=== PATIENT | female | born 1965 | race Caucasian/White ===

== ENCOUNTER 2016-08-08 22:49 | Inpatient (IN) | payer OTHER ==
--- NOTE | ~2016-08-08 | CN ---
Consultation Report [place] [id number] [facility] [place]. [address] NAME: RAUL BARRERA : 67 STATUS : ADM IN [facility]#: [id number] AGE: 51 ADM/REG DATE : 08/09/16 MR#: [id number] REPORT SERV DATE: 08/09/16 DICTATED BY: PRINCE HALL DATE: 08/09/16 REPORT STATUS : Draft TRANSCRIBED BY: MODL DATE: 08/09/16 CONSULTATION DATE OF CONSULTATION: 08/09/2016 ATTENDING PHYSICIAN: Prince Hall MD REASON FOR CONSULTATION: Right hydronephrosis. HISTORY OF PRESENT ILLNESS: Ms. Barrera is a very pleasant 51-year-old female, who is admitted to the hospital with a seizure. As part of the workup an abdominal complete ultrasound was performed. She did have some mild right hydronephrosis with a normal left kidney. No abnormalities were found. The patient does endorse a history of right flank pain. She also endorses a history recurring infections that are "resistant to antibiotics." She has no known history of stone disease or other genitourinary abnormalities. I have been asked to consult regarding the hydronephrosis on the ultrasound. PAST MEDICAL HISTORY: COPD, hyponatremia, hypertension, bronchiectasis, polyarthritis, bipolar, alcoholism, and colon polyps. PAST SURGICAL HISTORY: Right breast lumpectomy and tubal ligation. ALLERGIES: NO KNOWN DRUG ALLERGIES. MEDICATIONS: Reviewed and on the chart. SOCIAL HISTORY: She smokes. She is a current drinker. She lives alone. She does not use illegal drugs. FAMILY HISTORY: Noncontributory. REVIEW OF SYSTEMS: A 12-point review of systems was performed. Pertinent positives are listed in the HPI. PHYSICAL EXAMINATION: VITAL SIGNS: Temperature 98.1, pulse 86, blood pressure 120/59, saturating 95% on room air. GENERAL: She is in no acute distress. She appears her stated age. HEENT: Her head is normocephalic and atraumatic. LUNGS: Breathing is nonlabored. She is not in respiratory distress. CARDIAC: Pulse is regular in rate and rhythm. ABDOMEN: Soft, nontender, and nondistended. She has right CVA tenderness. She does not have left CVA tenderness. NEUROLOGIC: She is alert and oriented x3. Consultation Report [facility] [address] [place]. [address] NAME: RAUL BARRERA : 67 STATUS : ADM IN [facility]#: [id number] AGE: 51 ADM/REG DATE : 08/09/16 MR#: [id number] REPORT SERV DATE: 08/09/16 DICTATED BY: PRINCE HALL DATE: 08/09/16 REPORT STATUS : Draft TRANSCRIBED BY: MODJenise DATE: 08/09/16 LABORATORY DATA: White count 9.1, hemoglobin 12.0, creatinine is 0.79. She is hypokalemic with hyponatremic. Her urinalysis is negative for infection. She does have moderate blood on her urinalysis with negative hematuria on microscopic analysis with 1 red blood cell per high-power field. IMAGING: Ultrasound of the abdomen was reviewed and interpreted by myself. She has right hydronephrosis. ASSESSMENT/PLAN: 1. Right hydronephrosis. 2. Right flank pain. 3. History of recurrent pyelonephritis. PLAN: Ms. Barrera has right hydronephrosis of unknown origin. She is symptomatic. I will get a CT scan without contrast to better evaluate her condition. Further recommendations are to follow pending the results of the CT scan. Thank you for this consultation. I will continue to follow with you. HANK/DELL Prince Hall MD / [id number] CC: Colby Morgan M.D.
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
--- NOTE | ~2016-08-08 | HP ---
History And Physical [place] [id number] [facility] [place]. [address] NAME: RAUL ANTHONY : 67 STATUS : ADM IN [facility]#: [id number] AGE: 51 ADM/REG DATE : 08/09/16 MR#: [id number] REPORT SERV DATE: 08/09/16 DICTATED BY: SOCO FRANCIS DATE: 08/09/16 REPORT STATUS : Draft TRANSCRIBED BY: MODL DATE: 08/09/16 DATE OF ADMISSION: 08/09/2016 CHIEF COMPLAINT: A 51-year-old female presenting with a seizure. HISTORY OF PRESENT ILLNESS: The patient's history was obtained through careful interview with the patient and son, coupled with review of [facility] medical records. The patient for the last month has been dealing with "stress" related to her family. It has made her feel anxious and has caused a decrease in appetite and activity over this last month. It is in this context that the patient has begun to drink alcohol again after she had apparently been abstinent for more than a year. She apparently is downplaying the amount of alcohol she drinks, stating that she is drinking just one or two cans intermittently over this last month, but her son who is present during interview tends to think that the amount of alcohol consumed is more. It is in this context that on the evening leading up to admission about 11 p.m., she was with her son and suddenly without any warning, collapsed to the floor. He witnessed a grand mal seizure in which the patient had seizure activity for about five or six minutes before it subsided. She then had a prolonged postictal state. There was no loss of bowel or bladder continence. No biting of the tongue. When the patient did fall, she hit the side of her head and right face and has had a mild 6/10 severity headache diffusely since that time, but her postictal state and confusion have gradually improved over the last several hours. She describes lower back pain chronically without radiation, aching quality, 8/10 severity. She has had myalgias. No chest pain. No shortness of breath. She has had recent nausea, vomiting, diarrhea, and poor appetite and believes she has lost about 5 pounds over the last month. REVIEW OF SYSTEMS: Otherwise, a 14-point review of systems was obtained was negative. PAST MEDICAL HISTORY: 1. COPD. 2. Chronic hyponatremia with baseline sodium of 124-132. 3. Hypertension. 4. Bronchiectasis. 5. Inflammatory polyarthritis. 6. Bipolar disorder. 7. Previous alcohol withdrawal seizures in 1999 and 2006. History And Physical [address] [address] NAME: RAUL ANTHONY : 67 STATUS : ADM IN PAT#: [id number] AGE: 51 ADM/REG DATE : 08/09/16 MR#: [id number] REPORT SERV DATE: 08/09/16 DICTATED BY: SOCO FRANCIS DATE: 08/09/16 REPORT STATUS : Draft TRANSCRIBED BY: DELL DATE: 08/09/16 8. Colon polyps, seen by Dr. Shipley. 9. Previous alcoholism. PAST SURGICAL HISTORY: 1. Right breast lumpectomy. 2. Tubal ligation. ALLERGIES: NO KNOWN DRUG ALLERGIES. SOCIAL HISTORY: Smokes between one and half and two packs per day of cigarettes. States that she has been drinking beer for the last month again. She lives alone. Has three children. She is going through divorce. FAMILY HISTORY: Father with heart disease. Daughter with aortic stenosis. Aunt with colon cancer. Grandmother with breast cancer. Another grandmother with leukemia. CURRENT MEDICATIONS: Include hydrocodone p.r.n., lisinopril 40 mg p.o. daily, potassium. PHYSICAL EXAMINATION: VITAL SIGNS: Temperature 97.3, pulse 86, blood pressure 83/56, respiratory rate 14, and O2 sat 93% on room air. After IV fluids, the patient's blood pressure is sustained in the 110s and 120s systolic for several hours without any further hypotension. GENERAL: An ill-appearing female, no evidence of acute distress though. HEENT: Pupils equal, round, and reactive to light. No conjunctival pallor. No scleral icterus. Nares are patent. Oropharynx is clear of obstruction. Decidedly, dry mucous membranes with cracking of the tongue and lips. NECK: Trachea midline. No thyromegaly. LYMPH: No cervical lymphadenopathy. No supraclavicular lymphadenopathy. RESPIRATORY: Clear to auscultation at bases. No wheezes. No rales. No rhonchi. Normal respiratory effort. CARDIOVASCULAR: Regular rate and rhythm. No murmurs, rubs, or gallops. No extremity edema is appreciated. ABDOMEN: Soft, nontender, nondistended. Normal bowel sounds auscultated throughout. No hepatosplenomegaly. DERMATOLOGICAL: Warm and dry. EXTREMITIES: No pallor. No cyanosis. PSYCHIATRIC: Normal affect. Good mood. Alert and oriented x3. LABORATORY DATA: White blood cell count 16.3, hemoglobin 12, hematocrit 35, platelets 330. Sodium 119, potassium 2.6, chloride 87, bicarb 21, BUN 11, creatinine 0.91, glucose 99. Alcohol level undetectable. INR 1.2. Troponin 0.02. Liver enzymes within normal limits. Urine drug screen negative. STUDIES: 1. Chest x-ray by my own evaluation shows chronic changes, stable compared to old x-ray. 2. EKG by my own evaluation shows sinus rhythm, right bundle-branch block. 3. CT scan of the brain and the cervical spine are negative. History And Physical [address] [address] NAME: RAUL ANTHONY : 67 STATUS : ADM IN [facility]#: [id number] AGE: 51 ADM/REG DATE : 08/09/16 MR#: [id number] REPORT SERV DATE: 08/09/16 DICTATED BY: SOCO FRANCIS DATE: 08/09/16 REPORT STATUS : Draft TRANSCRIBED BY: DELL DATE: 08/09/16 ASSESSMENT AND PLAN: 1. Seizure. The patient has a history of previous alcohol withdrawal seizures in 1999 and 2006; and because of increased stress, the patient has resumed alcohol recently after being abstinent for more than a year now and alcohol level was undetectable, and I think this is consistent with an alcohol withdrawal seizure. We will place on p.o. Librium, p.r.n. IV Ativan. 2. Hypovolemic hyponatremia. Place on IV fluids. Discussed case with the servomechanism assembler, Dr. Corley, over the phone. The patient's baseline sodium is 124-132. 3. Hypokalemia. Replace potassium. Check magnesium. Question whether low potassium is secondary to vomiting. We will check an ultrasound of the abdomen. 4. Bipolar disorder. Question whether it is poorly controlled as the patient is admitted to feeling depressed and anxious over the last month with considerable stress. We will consult Dr. Rice, psychiatrist. 5. Chronic obstructive pulmonary disease. Place on Duo nebulizers. 6. Alcoholism. Scheduled Librium, banana bag IV daily. ROCIO/DELL Soco Francis M.D. / [id number] CC: Colby Morgan M.D.
--- NOTE | ~2016-08-08 | EEG ---
Electroencephalogram [id number] [place]. [address] NAME: RAUL ANTHONY : 67 STATUS : ADM IN PAT#: [id number] AGE: 51 ADM/REG DATE : 08/09/16 MR#: [id number] REPORT SERV DATE: 08/12/16 DICTATED BY: EVANS CARNES DATE: 08/12/16 REPORT STATUS : Draft TRANSCRIBED BY: DELL DATE: 08/12/16 INTERPRETING PHYSICIAN: Evans Carnes MD-Neurology. EEG NUMBER: [id number]. REASON FOR EEG: Possible seizures. 23 surface electrodes, 10-20 international placement was used. The patient appeared to be awake, drowsy, and asleep. Photic stimulation was performed. Video monitoring was utilized. The patient appeared anxious when awake. The background activity consisted of moderate voltage, 8 to 9 cycles per second located in the posterior head regions. There are large amount of low-voltage beta range activity was seen during the recording. Increase of spindle activity was seen during light sleep. Photic stimulation produced driving response, which continued through the high frequencies. No photoconvulsive response was seen. During stage I and II sleep, no significant paroxysmal epileptiform activity was noted. Large amount of spindling activity which was seen throughout all the leads including in the posterior head regions suggestive of medication effect. groundwater monitoring technician showed borderline sinus tachycardia, heart rate of approximately 98 beats per minute. IMPRESSION: NO EVIDENCE OF PAROXYSMAL OR EPILEPTIFORM ACTIVITY WAS SEEN DURING THIS STUDY. LARGE AMOUNT OF LOW-VOLTAGE BETA RANGE ACTIVITY MOST LIKELY REPRESENTS MEDICATION EFFECT. NO SIGNIFICANT ASYMMETRY OF CEREBRAL ACTIVITY WAS PRESENT. CLINICAL CORRELATION IS RECOMMENDED. MAGGY/DELL Evans Carnes MD / [id number] CC: Colby Morgan M.D.
[2016-08-09 00:46] LABS: PARTIAL THROMBO TIME 24.7 SEC (22.5-37.2)
[2016-08-09 00:49] LABS: INTERNATIONAL NORMAL RATI 1.2 UNITS (-); PROTIME (NOT ORD) 14.6 SEC (12.0-14.5)
[2016-08-09 00:56] LABS: ALBUMIN 3.8 G/DL (3.5-5.0); ALKALINE PHOSPHATASE 114 U/L (45-117); CALCIUM, SERUM 8.3 MG/DL (8.5-10.4); CHEST PAIN PROFILE TAT 0 Hrs 20 Mins; CO2 (CARBON DIOXIDE) 21 MMOL/L (24-34); CREATININE 0.91 MG/DL (0.55-1.02); DIRECT BILIRUBIN 0.2 MG/DL (0.0-0.4); GFR AFRICAN AMERICAN 85 ML/MIN (>=60); GFR NON AFRICAN AMERICAN 74 ML/MIN (>=60); SALICYLATE 9.7 MG/DL (-); SGOT(AST) 23 U/L (5-40); SGPT(ALT) 14 U/L (5-65); TOTAL PROTEIN 7.3 G/DL (6.0-8.5); TROPONIN I 0.02 NG/ML (<0.05)
[2016-08-09 00:57] LABS: ACETAMINOPHEN LEVEL (TYLENOL) < 2.0 MCG/ML (10.0-20.0); ALCOHOL < 10 MG/DL (0); BUN (BLOOD UREA NITROGEN) 11 MG/DL (6-23); CHLORIDE, SERUM 87 MMOL/L (96-112); GLUCOSE, SERUM 99 MG/DL (60-99); INDIRECT BILIRUBIN(NOT ORDER) 0.6 MG/DL (0.1-0.9); POTASSIUM, SERUM 2.6 MMOL/L (3.5-5.3); SODIUM, SERUM 119 MMOL/L (135-148); TOTAL BILIRUBIN 0.8 MG/DL (0-1.2)
[2016-08-09 00:58] LABS: BASOPHILS 0.1 %; BASOPHILS ABSOLUTE 0.01 10/3/uL (0.0-0.16); EOSINOPHILS 0.4 %; EOSINOPHILS ABSOLUTE 0.06 10/3/uL (0.0-0.53); IMMATURE GRANULOCYTES 0.4 %; IMMATURE GRANULOCYTES ABSOLUTE 0.06 10/3/uL (0.0-0.11); LYMPHOCYTES 8.8 %; LYMPHOCYTES ABSOLUTE 1.44 10/3/uL (0.67-4.30); MEAN CORPUSCULAR HEMOGLOB 31.6 pg (26.0-34.0); MEAN PLATELET VOLUME 8.7 fL (9.2-13.0); MONOCYTES 7.1 %; MONOCYTES ABSOLUTE 1.16 10/3/uL (0.21-1.20); NEUTROPHILS 83.2 %; RBC DISTRIBUTION WIDTH 12.4 % (12.0-16.0)
[2016-08-09 00:59] LABS: ER CBC TAT 0 Hrs 23 Mins; PLATELET COUNT 330 10/3/uL (150-400); WHITE BLOOD CELLS 16.3 10/3/uL (4.5-10.5)
[2016-08-09 01:03] LABS: HEMATOCRIT 35.5 % (36.0-48.0)
[2016-08-09 01:07] LABS: MANUAL DIFF NO %; MEAN CORPUSCULAR VOLUME 93.4 fL (80-100)
[2016-08-09 01:17] LABS: AMPHETAMINES (NOT ORD) NEG (NEG); BARBITURATES (NOT ORDERED NEG (NEG); BENZODIAZEPINES (NOT ORD) NEG (NEG); CANNABINOIDS (THC) NEG (NEG); COCAINE (NOT ORDERED) NEG (NEG); OPIATES NEG (NEG); PHENCYCLIDINE(PCP) NEG (NEG); TRICYCLICS NEG (NEG)
[2016-08-09 01:36] LABS: ASCORBIC ACID (UR NOT ORDER) NEG (NEG); BILIRUBIN, URINE NEGATIVE (NEG); ER URINALYSIS TAT 0 Hrs 00 Mins; KETONE, URINE 20 MG/DL (NEG); LEUKOCYTE ESTERASE(NOT OR NEG (NEG); NITRITE (URINE) NEG (NEG); WBC (NOT ORDERED) (RFLEX) 9 (0-5)
[2016-08-09] MEDS ORDERED: LISINOPRIL40 MG PO (01:54)
[2016-08-09] MEDS ORDERED: NORCO1 TAB PO (01:54)
[2016-08-09] MEDS ORDERED: POTASSIUM OTC PO (01:55)
[2016-08-09 07:03] LABS: POTASSIUM, SERUM 2.4 MMOL/L (3.5-5.3)
[2016-08-09 09:15] LABS: INTERNATIONAL NORMAL RATI 1.2 UNITS (-); PROTIME (NOT ORD) 15.3 SEC (12.0-14.5)
[2016-08-09 09:16] LABS: PARTIAL THROMBO TIME 42.2 SEC (22.5-37.2)
[2016-08-09 09:31] LABS: ALBUMIN 3.6 G/DL (3.5-5.0); ALKALINE PHOSPHATASE 112 U/L (45-117); BUN (BLOOD UREA NITROGEN) 9 MG/DL (6-23); CALCIUM, SERUM 8.5 MG/DL (8.5-10.4); CHLORIDE, SERUM 91 MMOL/L (96-112); CO2 (CARBON DIOXIDE) 19 MMOL/L (24-34); CREATININE 0.79 MG/DL (0.55-1.02); GFR AFRICAN AMERICAN 101 ML/MIN (>=60); GFR NON AFRICAN AMERICAN 87 ML/MIN (>=60); GLOBULIN 3.6 G/DL (2.5-4.1); GLUCOSE, SERUM 100 MG/DL (60-99); PHOSPHORUS, SERUM 2.2 MG/DL (2.5-4.5); SGOT(AST) 18 U/L (5-40); SGPT(ALT) 9 U/L (5-65); SODIUM, SERUM 122 MMOL/L (135-148); TOTAL BILIRUBIN 0.7 MG/DL (0-1.2); TOTAL PROTEIN 7.2 G/DL (6.0-8.5); TROPONIN I 0.02 NG/ML (<0.05)
[2016-08-09 09:33] LABS: POTASSIUM, SERUM 2.5 MMOL/L (3.5-5.3); ULTRASENSITIVE TSH 0.523 MCIU/ML (0.358-3.740)
[2016-08-09 10:00] LABS: BASOPHILS 0.2 %; BASOPHILS ABSOLUTE 0.02 10/3/uL (0.0-0.16); EOSINOPHILS 0.3 %; EOSINOPHILS ABSOLUTE 0.03 10/3/uL (0.0-0.53); IMMATURE GRANULOCYTES 0.3 %; IMMATURE GRANULOCYTES ABSOLUTE 0.03 10/3/uL (0.0-0.11); LYMPHOCYTES 17.5 %; LYMPHOCYTES ABSOLUTE 1.59 10/3/uL (0.67-4.30); MEAN CORPUSCULAR HEMOGLOB 30.8 pg (26.0-34.0); MEAN PLATELET VOLUME 8.5 fL (9.2-13.0); MONOCYTES 9.2 %; MONOCYTES ABSOLUTE 0.84 10/3/uL (0.21-1.20); NEUTROPHILS 72.5 %; PLATELET COUNT 329 10/3/uL (150-400); RBC DISTRIBUTION WIDTH 12.7 % (12.0-16.0); RED CELL COUNT 3.89 10/6/uL (4.0-5.6); WHITE BLOOD CELLS 9.1 10/3/uL (4.5-10.5)
[2016-08-09 10:01] LABS: HEMATOCRIT 34 % (36.0-48.0)
[2016-08-09 10:05] LABS: MEAN CORPUSCULAR VOLUME 88 fL (80-100)
[2016-08-09 10:28] LABS: MANUAL DIFF NO %
[2016-08-10 05:07] LABS: CHLORIDE, SERUM 100 MMOL/L (96-112); CO2 (CARBON DIOXIDE) 19 MMOL/L (24-34); CREATININE 0.53 MG/DL (0.55-1.02); GFR AFRICAN AMERICAN 128 ML/MIN (>=60); GFR NON AFRICAN AMERICAN 111 ML/MIN (>=60); PHOSPHORUS, SERUM 1.6 MG/DL (2.5-4.5); SODIUM, SERUM 127 MMOL/L (135-148)
[2016-08-10 05:08] LABS: BUN (BLOOD UREA NITROGEN) 5 MG/DL (6-23); GLUCOSE, SERUM 130 MG/DL (60-99); POTASSIUM, SERUM 2.3 MMOL/L (3.5-5.3)
[2016-08-10 13:26] LABS: PROCALCITONIN <0.05 ng/mL (<0.5)
[2016-08-10 15:33] LABS: ALBUMIN 3.2 G/DL (3.5-5.0); ALKALINE PHOSPHATASE 103 U/L (45-117); DIRECT BILIRUBIN 0.1 MG/DL (0.0-0.4); HDL CHOLESTEROL 44 MG/DL (> 49); INDIRECT BILIRUBIN(NOT ORDER) 0.9 MG/DL (0.1-0.9); SGOT(AST) 12 U/L (5-40); SGPT(ALT) 10 U/L (5-65); TOTAL PROTEIN 6.6 G/DL (6.0-8.5)
[2016-08-10 15:35] LABS: CHOL/HDL RATIO(NOT ORDER) 2.4 (0-5); CHOLESTEROL 105 MG/DL (< 200); FOLATE 18.7 NG/ML (>5.2); LDL CHOLESTEROL 46 MG/DL (< 130); NON-HDL CHOLESTEROL 61 MG/DL (< 160); POTASSIUM, SERUM 2.7 MMOL/L (3.5-5.3); TRIGLYCERIDE 76 MG/DL (< 150)
[2016-08-10 16:01] LABS: PROCALCITONIN <0.05 ng/mL (<0.5)
[2016-08-11 05:49] LABS: BUN (BLOOD UREA NITROGEN) 2 MG/DL (6-23); CALCIUM, SERUM 7.9 MG/DL (8.5-10.4); CHLORIDE, SERUM 99 MMOL/L (96-112); CO2 (CARBON DIOXIDE) 22 MMOL/L (24-34); CREATININE 0.48 MG/DL (0.55-1.02); GFR AFRICAN AMERICAN 133 ML/MIN (>=60); GFR NON AFRICAN AMERICAN 114 ML/MIN (>=60); GLUCOSE, SERUM 121 MG/DL (60-99); PHOSPHORUS, SERUM 2.4 MG/DL (2.5-4.5); POTASSIUM, SERUM 2.7 MMOL/L (3.5-5.3); SODIUM, SERUM 130 MMOL/L (135-148)
[2016-08-11 06:05] LABS: BASOPHILS 0.2 %; BASOPHILS ABSOLUTE 0.02 10/3/uL (0.0-0.16); EOSINOPHILS 0.9 %; EOSINOPHILS ABSOLUTE 0.09 10/3/uL (0.0-0.53); HEMOGLOBIN 10.2 g/dL (12.0-16.0); IMMATURE GRANULOCYTES 0.2 %; IMMATURE GRANULOCYTES ABSOLUTE 0.02 10/3/uL (0.0-0.11); LYMPHOCYTES 17.3 %; LYMPHOCYTES ABSOLUTE 1.66 10/3/uL (0.67-4.30); MEAN CORPUSCULAR HEMOGLOB 30.8 pg (26.0-34.0); MEAN PLATELET VOLUME 8.9 fL (9.2-13.0); MONOCYTES ABSOLUTE 0.77 10/3/uL (0.21-1.20); NEUTROPHILS 73.4 %; NEUTROPHILS ABSOLUTE 7.03 10/3/uL (2.02-8.40); PLATELET COUNT 346 10/3/uL (150-400); RBC DISTRIBUTION WIDTH 13.1 % (12.0-16.0); RED CELL COUNT 3.31 10/6/uL (4.0-5.6); WHITE BLOOD CELLS 9.6 10/3/uL (4.5-10.5)
[2016-08-11 06:06] LABS: HEMATOCRIT 27.7 % (36.0-48.0)
[2016-08-11 06:10] LABS: MANUAL DIFF NO %; MEAN CORPUS HGB CONC 36.8 g/dL (32.0-36.0); MEAN CORPUSCULAR VOLUME 83.7 fL (80-100)
[2016-08-11 20:36] LABS: BUN (BLOOD UREA NITROGEN) 3 MG/DL (6-23); CALCIUM, SERUM 8.1 MG/DL (8.5-10.4); CHLORIDE, SERUM 100 MMOL/L (96-112); CO2 (CARBON DIOXIDE) 24 MMOL/L (24-34); CREATININE 0.49 MG/DL (0.55-1.02); GFR AFRICAN AMERICAN 132 ML/MIN (>=60); GFR NON AFRICAN AMERICAN 114 ML/MIN (>=60); GLUCOSE, SERUM 124 MG/DL (60-99); POTASSIUM, SERUM 3.1 MMOL/L (3.5-5.3); SODIUM, SERUM 133 MMOL/L (135-148)
[2016-08-12 10:29] LABS: BUN (BLOOD UREA NITROGEN) 2 MG/DL (6-23); CALCIUM, SERUM 8.4 MG/DL (8.5-10.4); CHLORIDE, SERUM 100 MMOL/L (96-112); CO2 (CARBON DIOXIDE) 26 MMOL/L (24-34); CREATININE 0.49 MG/DL (0.55-1.02); GFR AFRICAN AMERICAN 132 ML/MIN (>=60); GFR NON AFRICAN AMERICAN 114 ML/MIN (>=60); GLUCOSE, SERUM 108 MG/DL (60-99); POTASSIUM, SERUM 3.5 MMOL/L (3.5-5.3); SODIUM, SERUM 133 MMOL/L (135-148)
[2016-08-13 05:36] LABS: BUN (BLOOD UREA NITROGEN) 5 MG/DL (6-23); CALCIUM, SERUM 8.9 MG/DL (8.5-10.4); CHLORIDE, SERUM 102 MMOL/L (96-112); CO2 (CARBON DIOXIDE) 26 MMOL/L (24-34); GFR AFRICAN AMERICAN 123 ML/MIN (>=60); GFR NON AFRICAN AMERICAN 106 ML/MIN (>=60); GLUCOSE, SERUM 106 MG/DL (60-99); POTASSIUM, SERUM 3.9 MMOL/L (3.5-5.3); SODIUM, SERUM 133 MMOL/L (135-148)
[2016-08-13 05:37] LABS: PHOSPHORUS, SERUM 3.9 MG/DL (2.5-4.5)
[2016-08-13 15:13] LABS: PROCALCITONIN <0.05 ng/mL (<0.5)
[2016-08-13 17:37] LABS: SODIUM, URINE 63 MEQ/L
[2016-08-13 18:28] LABS: OSMOLALITY, URINE 247 MOSM/KG (50-1200)
[2016-08-16] MEDS ORDERED: SEROQUEL50 MG PO (11:01)
[2016-08-16] MEDS ORDERED: KLONO5 PO (11:02)
[2016-08-16] MEDS ORDERED: DULERA 200 MCG/13 GM INH (11:03)
[2016-08-16] MEDS ORDERED: COMBIVENT RESPIM4 GM INH (11:03)
[2016-08-16] MEDS ORDERED: NORCO1 TAB PO (11:04)
[2016-08-16] MEDS ORDERED: DEPAKOT250 PO (11:05)
== END 2016-08-16 18:01 | disposition home or self-care (01) | DRG 896 ==
LOC: ER 22:49 → 1SO 08-09 03:37
PROVIDERS: Emergency Medicine; Hospitalist; Internal Medicine
PROC: HZ2ZZZZ Detoxification Services for Substance Abuse Treatment (ICD-10-PCS; principal; 2016-08-09)
DX: F10.239 Alcohol dependence with withdrawal, unspecified (principal); J18.9 Pneumonia, unspecified organism; R56.9 Unspecified convulsions; F31.9 Bipolar disorder, unspecified; E87.1 Hypo-osmolality and hyponatremia; E87.6 Hypokalemia; E86.1 Hypovolemia; J44.9 Chronic obstructive pulmonary disease, unspecified; F17.210 Nicotine dependence, cigarettes, uncomplicated; Z86.010 Personal history of colon polyps; F10.229 Alcohol dependence with intoxication, unspecified
CPT/HCPCS: 70450; 70544; 70548; 70553; 71010; 72125; 74176; 76700; 80048; 80053; 80061; 80076; 80185; 80305; 80307; 81001; 82140; 82150; 82306; 82533; 82550; 82607; 82746; 83036; 83605; 83690; 83735; 83935; 84100; 84132; 84145; 84300; 84443; 84484; 85025; 85610; 85730; 93005; 94640; 95819; 96361; 96374; 97110-GP; 97116-GP; 97161-GP; 97165-GO; 97535-GO; 99285; A9270-GY; A9577; J3411; J3475